=== PATIENT | female | born 1970 | race Caucasian/White ===

== ENCOUNTER 2017-02-08 14:04 | Emergency (ER) | payer OTHER ==
--- NOTE | ~2017-02-08 | US85 ---
[facility] A Service of [facility] RADIOLOGY TEXT RESULTS PATIENT: FORREST CARUSO LOCATION: SED : 70 UNIT #: [id number] AGE: [address]: Willis Gaston MD SEX: F ORDER DR: [id number] [id number] E MR#: [id number] Acc #: [id number] NAME: FORREST CARUSO : 1970 SEX: F STUDY DATE/TIME: 02/08/2017 16:24 UNIT: SED ROOM: STUDY DESCRIPTION: LE Veins Unilat or Ltd Stdy Attending Physician: Willis Gaston M.D. Ordering Physician: Willis Gaston M.D. Primary Care Physician: Adryan Fontenot M.D. MEDICAL IMAGING REPORT This report is preliminary unless electronic signature is present. EXAM Left lower extremity venous Doppler. INDICATIONS Left calf pain for the past day. PROCEDURE Beyer-scale and Doppler imaging deep veins of the left leg. COMPARISON None. FINDINGS Deep veins left leg compress normally, show normal color Doppler and spectral characteristics. There is some edema seen in the region of the left calf. IMPRESSION Some soft tissue edema in the left calf. No evidence for DVT in the left leg. Dictated by... Andi Melendez M.D. THIS IS AN ELECTRONICALLY VERIFIED REPORT Andi Melendez M.D. at 02/11/2017 7:01 AM EED/mena TD: 02/09/2017 08:42 JOB #: [id number] MEDICAL IMAGING REPORT
[~2017-02-08 14:04] MED LIST: ADDERALL; BACTRIM DS TABL1 TA1 PO; HYDROCORTISONE5 MG; NORCO 10-325 TA1 TAB; TRAMADOL HCL50 M1; XANAX1 MG
== END 2017-02-08 17:31 | disposition home or self-care (01) ==
LOC: SED 14:04
DX: L03.116 Cellulitis of left lower limb (principal); M19.072 Primary osteoarthritis, left ankle and foot; I10 Essential (primary) hypertension; F90.9 Attention-deficit hyperactivity disorder, unspecified type; F41.9 Anxiety disorder, unspecified; F17.210 Nicotine dependence, cigarettes, uncomplicated; Z98.890 Other specified postprocedural states; Z90.49 Acquired absence of other specified parts of digestive tract; M51.36 Other intervertebral disc degeneration, lumbar region; M51.34 Other intervertebral disc degeneration, thoracic region; M50.30 Other cervical disc degeneration, unspecified cervical region; Z79.899 Other long term (current) drug therapy
CPT/HCPCS: 82947; 93971; 96372; 99284; J1885